=== PATIENT | female | born 1960 | race Caucasian/White ===

== ENCOUNTER → 2016-11-26 | Outpatient (CLI) | payer BC ==
[~2016-11-26] MED LIST: AMIT25TA9 PO; CETIRIZINE; LYR50 PO
--- NOTE | 2016-11-26 15:48 | MAMMOGRAPHY REPORT ---
BILATERAL DIGITAL SCREENING MAMMOGRAM TOMOSYNTHESIS WITH CAD: 11/26/2016 CLINICAL HISTORY: Routine screening examination. TECHNIQUE: Breast tomosynthesis in addition to standard 2D mammography was performed. Current study was also evaluated with a Computer Aided Detection (CAD) system. COMPARISON: Comparison is made to exams dated: 11/22/2015 mammogram, 11/20/2014 mammogram, 11/17/2013 mammogram, 11/03/2012 mammogram, 11/03/2011 mammogram, and 10/30/2010 mammogram - [facility] enter. BREAST COMPOSITION: There are scattered areas of fibroglandular density in both breasts. FINDINGS: There is a possible small focal area of architectural distortion in the upper outer poste rior left breast, for which additional spot compression tomosynthesis views and possibly ultrasound are recommended. Questionable architectural distortion in the lateral right breast on the CC view c ould simply represent normal overlapping tissue. However additional spot compression tomosynthesis views and possibly ultrasound are also recommended in the right breast. There is a stable sammy metallic biopsy marker in the central right breast. No other suspicious mass, architectural distortion or cluster of microcalcifications is seen. IMPRESSION: ACR BI-RADS CATEGORY 0: INCOMPLETE EVALUATION: NEED ADDITIONAL IMAGING EVALUATION The possible small focal area of architectural distortion in the left upper outer quadrant, and ques tionable architectural distortion in the lateral right breast need additional imaging evaluation. The patient will be called to schedule an appointment. Approximately 10% of breast cancers are not detected with mammography. A negative mammographic repor t should not delay biopsy if a clinically suggestive mass is present. Terri Neumann M.D. ay/:11/26/2016 15:27:28 Rn Tele: Radha KERR(Tarun)([place]), [facility] letter sent: Addl Imaging 0 BI-RADS Code: ACR BI-RADS Category 0: Incomplete Evaluation: Need Additional Imaging Evaluation
== END | disposition home or self-care (01) ==
LOC: C.MAMM 11:54
PROVIDERS: ATTEND Family Medicine
DX: Z12.31 Encounter for screening mammogram for malignant neoplasm of breast (principal); R92.8 Other abnormal and inconclusive findings on diagnostic imaging of breast

== ENCOUNTER → 2016-12-03 | Outpatient (CLI) | payer BC ==
--- NOTE | 2016-12-04 08:14 | MAMMOGRAPHY REPORT ---
BILATERAL DIGITAL DIAGNOSTIC MAMMOGRAM TOMOSYNTHESIS AND TARGETED LEFT ULTRASOUND: 12/03/2016 CLINICAL HISTORY: 56 year old woman called back from screening mammography for possible areas of arc hitectural distortion in the breasts. TECHNIQUE: Spot compression tomosynthesis right CC, left CC and left MLO views were obtained. COMPARISON: Comparison is made to exams dated: 11/26/2016 mammogram, 11/22/2015 mammogram, 11/20/2014 m ammogram, 11/17/2013 mammogram, 11/03/2012 mammogram, and 11/03/2011 mammogram - [facility] enter. BREAST COMPOSITION: There are scattered areas of fibroglandular density in both breasts. FINDINGS: The spot compression tomosynthesis views in the right lateral breast demonstrate effacemen t of the questionable architectural distortion, confirming normal overlapping fibrolinear markings. There is no evidence of a suspicious mass or suspicious area of distortion. The spot compression tomosynthesis views of the left upper outer quadrant demonstrate questionable p ersistent distortion on the CC slice 26 with 2 associated microcalcifications. This area may persis t in the superior left breast on MLO slice 23. Further evaluation with ultrasound was performed. Real-time high-resolution ultrasound was performed throughout the left upper outer quadrant. Normal fat glandular tissue is seen without a discrete solid or cystic mass. IMPRESSION: ACR BI-RADS CATEGORY 0: INCOMPLETE EVALUATION: NEED ADDITIONAL IMAGING EVALUATION, TAR GETED ULTRASOUND ACR BI-RADS CATEGORY 0: INCOMPLETE EVALUATION: NEED ADDITIONAL IMAGING EVALUATION 1. Effacement of the question of architectural distortion in the lateral right breast, confirming n ormal overlapping curvilinear markings. 2. Possible persistent focal architectural distortion in the upper outer posterior left breast with 2 adjacent microcalcifications. However, a corresponding abnormality was not identified on ultraso und. Therefore, further evaluation with a contrast-enhanced breast MRI is recommended to assess the possibility of a subtle spiculated enhancing mass in the left upper outer breast. These results and recommendations were discussed with the patient at the time of the exam. Approximately 10% of breast cancers are not detected with mammography. A negative mammographic repor t should not delay biopsy if a clinically suggestive mass is present. Terri Neumann M.D. ay/:12/03/2016 15:26:10 Cnc Operator Programmer: Radha Galicia, [facility] letter sent: Addl Imaging 0 BI-RADS Code: ACR BI-RADS Category 0: Incomplete Evaluation: Need Additional Imaging Evaluation Ul trasound BI-RADS: ACR BI-RADS Category 0: Incomplete Evaluation: Need Additional Imaging Evaluation
== END | disposition home or self-care (01) ==
LOC: C.MAMM 13:06
PROVIDERS: ATTEND Family Medicine
DX: N64.89 Other specified disorders of breast (principal)

== ENCOUNTER → 2016-12-23 | Outpatient (CLI) | payer BC ==
[~2016-12-23] MED LIST changes: +GADAVIST IV PRN
--- NOTE | 2016-12-24 14:11 | MAMMOGRAPHY REPORT ---
BREAST MRI OF BOTH BREASTS : 12/23/2016 CLINICAL HISTORY: 56-year-old woman with a possible subtle area of focal architectural distortion in the upper outer posterior left breast, without sonographic correlate. She presents to assess for a ny abnormal enhancing mass. COMPARISON: Comparison is made to exams dated: 12/03/2016 mammogram, 12/03/2016 ultrasound, 11/26/2016 mammogram, 11/22/2015 mammogram, 11/20/2014 mammogram, and 11/17/2013 mammogram - [facility]. TECHNIQUE: Using a 1.5 Merry magnet and dedicated breast coil, multisequence axial images were obtai namita through the breasts. After uneventful IV administration of 8 mL of Gadavist, dynamic multiphase contrast-enhanced axial images, and sagittal postcontrast were obtained. Temporal subtraction axia l images and 3-D MIP images are provided. Everything was then reviewed on a 3-D workstation, [employer]. FINDINGS: Right breast: There is minimal background parenchymal parenchymal enhancement. No suspicious enhanc ing mass, focal area of architectural distortion, suspicious non-mass enhancement or suspicious kine tics are seen within the right breast. There is no focal skin thickening or nipple retraction. The re is susceptibility artifact from a metallic biopsy marker in the 11:00 middle one third of the rig ht breast. No suspicious right axillary lymphadenopathy. Left breast: There is no significant background parenchymal enhancement. No suspicious enhancing ma ss, non-mass enhancement or definite architectural distortion is seen in the upper outer posterior l eft breast to correlate with the possible subtle mammographic finding. Given the lack of enhancemen t this finding is most likely benign. However, given that it was best seen mammographically, a shor t interval follow-up diagnostic left mammogram including tomosynthesis images is recommended to ensu re stability in 6 months. There is no focal left breast skin thickening or nipple retraction. No s uspicious left axillary lymphadenopathy. Other: Incidental note is made of a small left pleural effusion, trace right pleural effusion and up per abdominal ascites. Review of prior imaging studies at this institution does not demonstrate any cross-sectional imaging or ultrasound to determine chronicity. Therefore, clinical correlation is recommended to determine if these abnormalities are possibly new, and if indicated, abdominal ultras ound and/or chest/abdominal CT may be useful. There are also a few scattered anterior pericardiac a nd pericardiophrenic lymph nodes. IMPRESSION: ACR-BI-RADS CATEGORY 3: PROBABLY BENIGN 1. No suspicious enhancing mass, definite architectural distortion or non-mass enhancement in the u pper outer posterior left breast to correlate with the possible subtle distortion seen mammographica lly. The lack of enhancement suggests benignity, however, a short interval follow-up diagnostic lef t mammogram including tomosynthesis images is recommended to ensure stability in 6 months. 2. No MRI evidence of malignancy within the right breast. 3. Incidental trace right pleural effusion, small left pleural effusion and upper abdominal ascites as well as scattered anterior pericardiac and pericardiophrenic lymph nodes. Clinical correlation i s recommended to determine if these abnormalities are possibly new, and if indicated, abdominal ultr asound and/or chest/abdominal CT may be useful. These results and recommendations will be discussed with the patient. An attempt was made to contac t her via telephone at 5:38 PM on 12/23/2016. Her voicemail box was full and I will reattempt tomor row. Terri Neumann M.D. ay/:12/23/2016 17:50:27 Director Of Primary: stone and plate preparer apprentice, [facility] letter sent: Follow Up Recommended 3 BI-RADS Code: ACR-BI-RADS Category 3: Probably Benign
== END | disposition home or self-care (01) ==
LOC: C.MRI 12:22
PROVIDERS: ATTEND Family Medicine
DX: R92.8 Other abnormal and inconclusive findings on diagnostic imaging of breast (principal)

== ENCOUNTER → 2017-06-05 | Outpatient (CLI) | payer BC ==
[~2017-06-05] MED LIST changes: -GADAVIST IV PRN; +OPTIRAY 320 IV PRN
--- NOTE | 2017-06-05 16:41 | DIAGNOSTIC IMAGING REPORT ---
(CHEST FOR PE) ANGIO WITH CT DOSE: 1593.94 mGy.cm HISTORY: 57 years-old Female presents with acute shortness of breath. Prior hysterectomy with history of ovarian carcinoma TECHNIQUE: Multiple CTA images of the chest were obtained after the intravenous administration of 116 ml Optiray 320. Coronal and sagittal MIPS were obtained from the axial data set and were submitted for review. A dose lowering technique was utilized adhering to the principles of ALARA. Technologist notes that approximately 30 mL intravenous contrast was infiltrated into the soft tissues at site of IV placement. A warm compress was reportedly placed. COMPARISON: CT abdomen and pelvis of same day FINDINGS: CTA: Heart is normal in size without pericardial effusion. Thoracic aorta is normal in both course and caliber without dissection or aneurysm. The pulmonary arterial tree is opacified to level of the proximal subsegmental branches and demonstrates no focal filling defect to suggest pulmonary thromboembolic disease. CT CHEST: No dominant thyroid nodule identified. No pathologic adenopathy about the chest. Linear subsegmental pleural based opacities are present within the lung bases suggesting areas of atelectasis and/or scarring. There are groundglass densities scattered throughout all lobes bilaterally suggesting additional areas of atelectasis. Pleural-based 1.3 x 0.7 cm consolidative opacity of the superior segment right lower lobe abutting the adjacent major fissure is noted, image 151 series 7. Mild bronchial wall thickening of the lung bases. No pneumothorax or pleural effusion. 4 mm groundglass opacity is present within the left upper lobe, image 165 series 7. No definite additional solid or groundglass nodules identified. Reflux of contrast into the IVC and hepatic veins is likely secondary to technique. No acute abnormality identified of the imaged upper abdomen. There are postsurgical changes of the central ventral abdominal wall with minimal stranding of the adjacent omentum. Mild amount of free fluid is noted adjacent to the lateral left hepatic lobe and stomach. Soft tissues are otherwise unremarkable. The bones appear intact. There are no suspicious lytic or blastic bony lesions. Multilevel mild endplate spurring of the spine. IMPRESSION: 1. No acute aortic pathology or evidence of pulmonary thromboembolic disease. 2. Bilateral bronchial wall thickening, greatest at the level of the lung bases suggest bronchitis. Scattered areas of groundglass opacity with linear subsegmental pleural based consolidative densities suggest atelectasis. Focal pleural-based consolidative opacity of the superior segment right lower lobe as above measuring up to 1.3 cm also likely reflects scarring or atelectasis, however attention at follow-up recommended. 3. No pathologic adenopathy about the chest. 4. 4 mm groundglass nodule of the left upper lobe. 5. Mild free fluid of the upper abdomen with post surgical changes of the ventral abdominal wall. Please refer to below summary of Fleischner criteria recommendations for follow-up of incidental CT nodules (Isaiah Cabrales, Guidelines for management of small pulmonary nodules detected on CT scans: A statement from the Fleischner Society, Radiology 237: [phone].) Note: newly detected indeterminate nodule in persons 35 years of age or older. * Low risk patients: minimal or absent history of smoking and/or other known risk factors * high risk patients: history of smoking or of other known risk factors (e.g. first degree relative with lung cancer, or exposure to asbestos, radon, uranium) * if a nodule up to 8 mm is partly solid or is ground glass further follow-up is required after 24 months to exclude possible slow growing adenocarcinoma (QUIQUE) SUBSOLID NODULES Solitary pure ground-glass nodule * nodule size <6 mm - no CT follow-up required * nodule size >=6 mm - follow-up CT at 6-12 months, then every 2 years until 5 years The above report was generated using voice recognition software. It may contain grammatical, syntax or spelling errors. Electronically signed by: Dami Ly M.D. 06/05/2017 4:40 PM Dictated Date/Time: 06/05/2017 4:29 PM
--- NOTE | 2017-06-05 16:45 | DIAGNOSTIC IMAGING REPORT ---
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 TECHNIQUE: Multidetector CT of the abdomen and pelvis was performed after the administration of intravenous contrast. IV contrast: 116 mL of Optiray 320. A dose lowering technique was used consistent with the principles of ALARA (as low as reasonably achievable). COMPARISON: None. CT DOSE (mGy.cm): The estimated cumulative dose is 1593.94 inclusive of the CTA chest. FINDINGS: Intern Brand topogram: Unremarkable. Lung bases: Extensive basilar bandlike opacities likely atelectasis or scarring. Lower lobe bronchial wall thickening. Mosaic attenuation at the lung bases could suggest small airways disease. No focal nodule. Please see separately dictated CTA of the chest. Mild multichamber enlargement of the heart. No pericardial or pleural effusion. Liver: Normal morphology. No liver lesion. Patent hepatic vasculature. Biliary: No intrahepatic or extrahepatic biliary ductal dilatation. Mild gallbladder wall thickening may be present. No gallbladder distention. Pancreas: Mild parenchymal atrophy. Spleen: Normal. Small splenule noted. Adrenal glands: Normal. Kidneys and ureters: Normal. No hydronephrosis. Bladder: Normal. Pelvic: Uterus surgically absent. No adnexal masses. Postsurgical changes of the adnexa. Fascial thickening in the pelvis likely expected postsurgical findings. Bowel: Moderate stool burden throughout normal caliber colon. Small bowel in the pelvis has a somewhat kinked configuration suggesting postsurgical adhesions. No bowel obstruction. Mild wall thickening of the gastric antrum without perigastric inflammation. Peritoneal cavity: Mild diffuse peritoneal thickening, which may be postsurgical. No patricio peritoneal nodularity. Trace free fluid noted in the left upper quadrant. Lymph nodes: Numerous scattered small mesenteric and retroperitoneal lymph nodes, nonspecific. No pathologically enlarged lymph nodes by CT size criteria. Vasculature: Aorta and IVC patent and normal in caliber. Abdominal wall: Extensive postsurgical change in the midline ventral abdomen. A few small sites of herniation of extraperitoneal fat suggested. No associated fluid collection. Mild inflammatory change along the incision site could suggest fat necrosis. Overlying skin thickening noted. Musculoskeletal: No destructive osseous lesion. IMPRESSION: 1. Postsurgical changes of the midline ventral abdominal wall with findings suggestive of scattered areas of associated fat necrosis and possible mild cellulitis. Correlate clinically. No evidence of abscess. 2. Postsurgical changes of hysterectomy and oophorectomy. No evidence of residual peritoneal nodularity. Peritoneal fascial thickening could represent expected postsurgical findings. 3. No pathologically enlarged lymph nodes to suggest lymphadenopathy. 4. Trace amount of left upper quadrant fluid could represent expected postsurgical change. 5. Wall thickening of the gastric antrum could suggest gastritis. 6. Extensive bibasilar atelectasis or scarring as well as bronchial wall thickening. Please see separately dictated CTA of the chest for further findings. Electronically signed by: Isidro Aburto M.D. 06/05/2017 4:44 PM Dictated Date/Time: 06/05/2017 4:32 PM
== END | disposition home or self-care (01) ==
LOC: C.CTS 14:59
PROVIDERS: ATTEND Student in an Organized Health Care Education/Training Program
DX: L03.90 Cellulitis, unspecified (principal); R06.02 Shortness of breath; Z85.43 Personal history of malignant neoplasm of ovary; Z90.710 Acquired absence of both cervix and uterus; Z90.722 Acquired absence of ovaries, bilateral; R91.8 Other nonspecific abnormal finding of lung field; R91.1 Solitary pulmonary nodule; J98.11 Atelectasis

== ENCOUNTER → 2017-07-24 | Outpatient (CLI) | payer BC ==
[~2017-07-24] MED LIST changes: +ALBUAER PO; +CITA40TA12 PO; +DOCU100C31 PO; +HYDR-5688 PO; +IBUP-1428 PO; +LINA1CAP2 PO; +ONDA8TAB62 SL; -OPTIRAY 320 IV PRN; +PRLSR20 PO; +RBX500 PO; +VALA500T60 PO
--- NOTE | 2017-07-24 12:51 | MAMMOGRAPHY REPORT ---
UNILATERAL LEFT DIGITAL DIAGNOSTIC MAMMOGRAM TOMOSYNTHESIS WITH CAD: 07/24/2017 CLINICAL HISTORY: The patient is here for follow-up of an area of possible architectural distortion s een within the left upper outer quadrant. No corresponding abnormality was seen on a breast MRI. Th e patient reports no new lumps or other complaints. She was recently diagnosed with ovarian cancer a nd is status post surgery and chemotherapy. TECHNIQUE: Breast tomosynthesis in addition to standard 2D mammography was performed. Current study was also evaluated with a Computer Aided Detection (CAD) system. Left CC and MLO 2-D and tomosynthes is images were obtained. COMPARISON: Comparison is made to exams dated: 12/23/2016 breast MRI, 12/03/2016 ultrasound, 12/03/2016 mammogram, 11/26/2016 mammogram, 11/22/2015 mammogram, and 11/20/2014 mammogram - [facility]. BREAST COMPOSITION: There are scattered areas of fibroglandular density in the left breast. FINDINGS: The previously described area of questionable architectural distortion within the left upp er outer quadrant does not appear significantly changed compared to the November 2016 exam. a few punctat e benign-appearing calcifications are seen in this region which appear similar to multiple prior exam s including the 2013 exam. Given that no corresponding abnormality was seen on the prior breast MRI, the finding is probably benign and may represent normal fibroglandular tissue or a tiny radial scar. The remainder of the left breast is stable compared to prior exams, without suspicious masses, calc ifications, or areas of architectural distortion noted. IMPRESSION: ACR-BI-RADS CATEGORY 3: PROBABLY BENIGN Possible small area of focal architectural distortion in the left upper outer quadrant is stable comp ared to the prior exam, and is probably benign and may represent normal fibroglandular tissue versus a small radial scar. Recommend bilateral diagnostic tomosynthesis mammograms in 6 months, to reevalu ate the left breast finding and for routine mammography of the right breast. The patient has been verbally notified of the results. Approximately 10% of breast cancers are not detected with mammography. A negative mammographic report should not delay biopsy if a clinically suggestive mass is present. Lilliana Pandya M.D. ah/:07/24/2017 12:06:05 Dentist/Owner: Radha KERR(Tarun)(M), [facility] letter sent: Follow Up Recommended 3 BI-RADS Code: ACR-BI-RADS Category 3: Probably Benign
== END | disposition home or self-care (01) ==
LOC: C.MAMM 10:48
PROVIDERS: ATTEND Student in an Organized Health Care Education/Training Program
DX: R92.8 Other abnormal and inconclusive findings on diagnostic imaging of breast (principal)

== ENCOUNTER → 2017-08-20 | Outpatient (CLI) | payer BC ==
[~2017-08-20] MED LIST changes: -ALBUAER PO; -CITA40TA12 PO; -DOCU100C31 PO; -HYDR-5688 PO; -IBUP-1428 PO; -LINA1CAP2 PO; -ONDA8TAB62 SL; +OPTIRAY 320 IV PRN; -PRLSR20 PO; -RBX500 PO; -VALA500T60 PO
--- NOTE | 2017-08-20 13:02 | DIAGNOSTIC IMAGING REPORT ---
CHEST CT WITH CONTRAST CT DOSE: 889.54 mGy.cm HISTORY: Ovarian cancer. TECHNIQUE: Multiaxial CT images of the chest were performed following the intravenous administration of contrast. A dose lowering technique was utilized adhering to the principles of ALARA. COMPARISON: Chest CTA 06/05/2017. FINDINGS: No significant change in the peripheral irregular pleural-based 13 x 7 mm consolidative opacity within the superior segment of the right lower lobe. This abuts the right major fissure. No pneumothorax. No pleural effusions. Linear densities at the lung bases favor subsegmental atelectasis are scarring. The central airways are patent. The 4 mm groundglass nodule seen within the left upper lobe remains unchanged. This is best seen on image 88. No new pulmonary nodules identified. No suspicious lytic or blastic osseous lesions. No mediastinal or hilar lymphadenopathy. The mediastinal vascular structures are within normal limits. Punctate calcified granuloma within the left lower lobe. IMPRESSION: 1. No significant change in the peripheral irregular pleural-based 13 x 7 mm consolidation within the superior segment of the right lower lobe. A six-month chest CT follow-up is recommended to ensure stability. 2. There is also a stable 4 mm groundglass nodule within the left upper lobe. This also requires follow-up. Electronically signed by: Samir Argulelo M.D. 08/20/2017 1:01 PM Dictated Date/Time: 08/20/2017 12:51 PM
--- NOTE | 2017-08-20 13:17 | DIAGNOSTIC IMAGING REPORT ---
CT OF THE ABDOMEN AND PELVIS WITH CONTRAST CLINICAL HISTORY: Ovarian cancer with peritoneal carcinomatosis. Nonhealing wound. COMPARISON STUDY: CT of the abdomen and pelvis June 05, 2017. TECHNIQUE: Following IV administration of 94 mL of Optiray-320, axial images of the abdomen and pelvis were obtained from the lung bases to the proximal femurs. Images were reviewed in the axial, sagittal, and coronal planes. IV contrast was administered without complication. A dose lowering technique was utilized adhering to the principles of ALARA. FINDINGS: The chest CT will be reported separately. Fatty infiltration of the liver is noted. Trace perisplenic fluid has decreased since exam of June 05, 2017. There is mild scarring within the right kidney. There is no hydronephrosis. The adrenal glands and pancreas are normal. There is no biliary or pancreatic ductal dilatation. There is no evidence for a bowel obstruction. The patient is status post hysterectomy, bilateral oophorectomy and suspected omentectomy. There are no peritoneal nodules. No abdominal or pelvic lymphadenopathy is present. Note is made of a supraumbilical wound which contains packing. There is a small amount of gas along the anterior abdominal wall, within the deep subcutaneous tissues at the site of wound. There is a small amount of fluid within the laparotomy site with no well-defined rim-enhancing fluid collection. No suspicious osseous lesions are present. IMPRESSION: 1. No convincing evidence for recurrent/residual malignancy within the abdomen or pelvis. 2. Small amount of perisplenic fluid which has decreased since exam of June 05, 2017. 3. Status post laparotomy. Supraumbilical wound which contains packing material and a small amount of gas which is likely related to the open wound. An underlying fistula is considered less likely. Small amount of fluid within the laparotomy bed without rim enhancing collection to suggest abscess. No drainable collection. 4. No bowel obstruction. Electronically signed by: Taiwo Fountain M.D. 08/20/2017 1:15 PM Dictated Date/Time: 08/20/2017 12:52 PM
== END | disposition home or self-care (01) ==
LOC: C.CTS 12:04
PROVIDERS: ATTEND Internal Medicine Hematology & Oncology
DX: C56.1 Malignant neoplasm of right ovary (principal); C56.2 Malignant neoplasm of left ovary; C80.1 Malignant (primary) neoplasm, unspecified; C78.6 Secondary malignant neoplasm of retroperitoneum and peritoneum; T14.8XXA Other injury of unspecified body region, initial encounter; X58.XXXA Exposure to other specified factors, initial encounter; R91.1 Solitary pulmonary nodule

== ENCOUNTER → 2017-11-12 | Outpatient (CLI) | payer BC ==
[~2017-11-12] MED LIST changes: +ALBUAER PO; +CITA40TA12 PO; +DOCU100C31 PO; +HYDR-5688 PO; +IBUP-1428 PO; +LINA1CAP2 PO; +ONDA8TAB62 SL; +PRLSR20 PO; +RBX500 PO; +VALA500T60 PO
--- NOTE | 2017-11-12 17:29 | DIAGNOSTIC IMAGING REPORT ---
CHEST CT, ABDOMEN AND PELVIS WITH CONTRAST CT DOSE: 793.87 mGy.cm HISTORY: Acute periumbilical abdominal pain with chest pain. History of ovarian carcinoma. PERIUMBILICAL TENDERNESS HX OVARIAN CA TECHNIQUE: Multiaxial CT images of the chest, abdomen and pelvis were performed following the intravenous administration of contrast. A dose lowering technique was utilized adhering to the principles of ALARA. COMPARISON: CT chest, abdomen and pelvis 08/20/2017 FINDINGS: CT CHEST: No dominant thyroid nodule or pathologic adenopathy identified. Heart is normal in size without pericardial effusion. The thoracic aorta is normal in both course and caliber without aneurysm or dissection. The imaged great vessels appear to be patent. The opacified pulmonary arterial tree is unremarkable. There is no pneumothorax, pleural effusion or focal airspace consolidation. Calcified granuloma with adjacent linear subsegmental atelectasis/scarring is noted within the left lower lobe. Pleural-based consolidative opacity of the superior segment right lower lobe is again seen on image 101 series 4 measuring 1.4 x 0.6 cm, previously measuring 1.3 x 0.7 cm on study dated 08/20/2017. 4 mm groundglass nodule of the left upper lobe on image 95 series 4 is also unchanged. No new or enlarging pulmonary nodules identified. Central airways are patent. Soft tissues of the chest are unremarkable. Bones appear intact without suspicious lytic or blastic bony lesions to suggest metastasis. Mild multilevel endplate spurring and facet arthrosis about the spine. CT ABDOMEN/PELVIS: Fatty infiltration of the liver. Trace perisplenic fluid is again noted which may have slightly increased from comparison. The spleen is unremarkable. Pancreas and adrenal glands are unremarkable. The gallbladder is also within normal limits. Kidneys, ureters and urinary bladder are within normal limits. Prior hysterectomy. No adnexal mass lesions identified. Aorta is normal in course and caliber. IVC appears unremarkable. No bulky adenopathy identified. There is no bowel obstruction or focal bowel wall thickening identified. Surgically absent appendix. Prior laparotomy changes with previously described air at the surgical site within the subcutaneous tissues no longer present. There was however fluid seen within the laparotomy which measures up to 1.7 x 2.0 x 4.5 cm in AP, transverse and craniocaudal dimensions. Multiloculated on the lateral images. No intra-abdominal extension identified. Mild diastases recti. Degenerative changes of the lumbar spine and pelvis. No suspicious lytic or blastic bony lesions. IMPRESSION: 1. Remote laparotomy changes with multiloculated fluid within the laparotomy scar measuring up to 1.7 x 2.0 x 4.5 cm appearing multiloculated. Chronic postoperative seroma or abscess are differential considerations. No intra-abdominal extension. 2. No acute intrathoracic, intra-abdominal or intrapelvic abnormality identified. 3. No pathologic adenopathy. 4. Mild perisplenic fluid redemonstrated. 5. Unchanged pleural-based consolidative opacity of the superior segment right lower lobe, 1.4 x 0.6 cm with stable 4 mm groundglass nodule of the left upper lobe. Electronically signed by: Dami Ly M.D. 11/12/2017 5:27 PM Dictated Date/Time: 11/12/2017 5:13 PM
== END ==
LOC: C.CTS 14:39
PROVIDERS: ATTEND Internal Medicine Hematology & Oncology
DX: C56.9 Malignant neoplasm of unspecified ovary (principal); R51 Headache; R10.815 Periumbilic abdominal tenderness; R91.1 Solitary pulmonary nodule